=== PATIENT | male | born 1955 | race Caucasian/White ===

== ENCOUNTER 2018-06-18 10:44 | Day surgery (SDC) | payer OTHER ==
[~2018-06-18 10:44] MED LIST: Buffered Lidocaine 0.9% SYRIN* 5 ML/SYR SYRINGE INTRADERM ONE; Dexamethasone IV* 4 MG/ML 1 ML (4 MG) IV SLOW PU ONE; Famotidine IV* 10 MG/ML 2 ML (20 mg) IV ONE
[2018-06-18] MEDS ORDERED: Dexamethasone IV* 4 MG/ML 1 ML (4 MG) ONE (11:01)
[2018-06-18] MEDS ORDERED: ceFAZolin 2 GM PREMIX in ORs 2 GM/50 ML BAG IVPB ONE (11:01)
[2018-06-18] MEDS ORDERED: Famotidine IV* 10 MG/ML 2 ML (20 mg) ONE (11:02)
[2018-06-18] MEDS ORDERED: Bupivacaine 0.25% SDV* 30 ML ONE (11:54)
[2018-06-18] MEDS ORDERED: fentaNYL* 50 MCG/ML 2 ML VIAL (100 MCG VIAL) ONE ×2 (11:57→13:52)
[2018-06-18] MEDS ORDERED: Midazolam* 1 MG/ML 2 ML VIAL (2 MG) ONE (11:57)
[2018-06-18] MEDS ORDERED: Propofol* 10 MG/ML 20 ML BTL IV PUSH ONE (11:59)
[2018-06-18] MEDS ORDERED: EPHEDrine (Pressors)* 50 MG/ML VIAL ONE (12:22)
[2018-06-18] MEDS ORDERED: Naloxone* 0.4 MG/ML 1 ML VIAL IV PRN (12:31)
[2018-06-18] MEDS ORDERED: DiMENhydriNATE IV* 50 MG/ML VIAL IV PUSH PRN (12:31)
[2018-06-18] MEDS ORDERED: fentaNYL* 50 MCG/ML 2 ML VIAL (100 MCG VIAL) IV PRN (12:31)
[2018-06-18 15:06] VITALS: BP 121/70
--- NOTE | 2018-06-19 13:04 | OP ---
DATE OF OPERATION: 06/18/18 - [facility] DATE OF : 51 SURGEON: Yomi Lin MD [employer] LIBRARIAN: EDU [place]. An plumber's assistant was needed for the entirety of the procedure to aid in positioning of the arm and retraction. ANESTHESIOLOGIST: Dr. Benoit. ANESTHESIA: General. 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 OPERATIVE PROCEDURE: Right third metacarpophalangeal joint arthroplasty with PyroCarbon Integra implant. INDICATIONS: Adrile has been a patient of mine for quite some time. We have done injections. The pain has progressed to the point now that it is so severe that he is looking to have something done. We discussed the risk of failure of the implant, risk of loosening, risk of collateral ligament instability, progressive deformity, the risk of the need for revision of the implant versus need to fuse the joint. He understands all of this, he would like to proceed. He also understands risk of infection. ESTIMATED BLOOD LOSS: 2 mL. COMPLICATIONS: None. FINDINGS: See above and below. DESCRIPTION OF PROCEDURE: Adriel was seen in the preoperative holding area. The correct site, side, and procedure were identified. We came back to the operating room where the arm was prepped and draped in the usual fashion. The arm was extended with the Esmarch and the tourniquet was inflated to 250 mmHg. I made a curvilinear longitudinal incision over the dorsum of the third MCP joint. Dissection was carried down and full-thickness flaps were raised off the extensor tendon and paratenon. There was no subluxation of the extensor tendon and so, I split the tendon down the midline. The interval between the capsule and the tendon was developed. The capsule was then split longitudinally and soft tissue was reflected off the metacarpal head and neck and off the base of the proximal phalanx taking care to preserve the collateral ligament. I then placed a 0.062 K-wire into the metacarpal head. A starter awl was used to open up the cortex of the metacarpal head. There was no cartilage left and the bone was very eburnated. The metacarpal head cutting guide pin was introduced into the metacarpal shaft and the alignment was confirmed on the AP and lateral views. I then made my cut with the sagittal saw blade provided in the Integra instrument set. Care was taken to preserve the collateral ligament origin and the cut was made just distal to the collateral ligament origin. I then came to the proximal phalanx and I opened up the bone in the appropriate position with 0.062 K-wire. I then made a small cut off the base of the proximal phalanx in the appropriate orientation. The provided bur was used to open up a cortical window through the subchondral bone , so that I can broach up and size my implant off the proximal phalanx. Ultimately, we broached up to a 30. I then came to the metacarpal head, and I broached up to a size 30 taking care to confirm the alignment on mini C-arm fluoroscopy. I placed my trial implants. I thought it was just a little bit tight, so I took another mm or 2 off the metacarpal head. I re-broached and then I trialed and everything looked good at this point. We therefore irrigated things out very nicely. We changed our gloves and then I opened up gloves and then we opened up the definitive implant and first placed the proximal phalanx implant and then the metacarpal head implant. The metacarpal head implant was sitting just a mm proud and I could not get it to sink down, but ultimately the fit was very nice and so, I did not want to remove it and re- broached because I did not want to damage the metacarpal head , so I just left it in place as it was extremely stable. There was no motion or play in the implants, whatsoever. The fit was very nice, had a full easy range of motion. There was no friction and no catching. Overall, he is very pleased with the sizing of the implant. Certainly, the joint did not fill overstuffed to me. Everything was looking good at this point, so we irrigated out the wound copiously and then I closed the capsule with 4-0 Prolene suture. I then closed the splint and my extensor tendon with 4-0 Prolene suture. Skin was closed with 4-0 nylon suture. 0.25% Marcaine was infiltrated all around the area. The wound was dressed and he was placed in short-arm splint with the MCP joint in gentle flexion and the IP joints extended. Tourniquet was deflated. The hand and finger pinked up immediately. He was taken to the recovery room in stable condition. [id number]/[facility] #: [id number] CARROLL
== END 2018-06-18 15:45 | disposition home or self-care (01) ==
LOC: OREAST 10:44
PROVIDERS: ATTEND Orthopaedic Surgery Hand Surgery
DX: M19.041 Primary osteoarthritis, right hand (principal); M19.042 Primary osteoarthritis, left hand; I10 Essential (primary) hypertension; E78.5 Hyperlipidemia, unspecified
CPT/HCPCS: 76000; C1776; J0690; J1100; J2250; J2704; J3010

== ENCOUNTER 2018-08-13 06:02 | Day surgery (SDC) | payer OTHER ==
[~2018-08-13 06:02] MED LIST changes: -Dexamethasone IV* 4 MG/ML 1 ML (4 MG) IV SLOW PU ONE; +Dexamethasone TAB* 4 MG PO ONE; +DiMENhydriNATE IV* 50 MG/ML VIAL IV PUSH PRN; +Lactated Ringers 1000 ML Bag* 1,000 ML IV SCH; +Morphine VIAL* 4 MG/ML VIAL (1 ml vial) IV PRN; +Naloxone* 0.4 MG/ML 1 ML VIAL IV PRN; +Ondansetron TAB* 4 MG PO ONE; +PROCHLORPERAZINE INJ 5 MG/ML 2 ML VIAL IV PRN; +Scopolamine 1.5 mg* PATCH TRANSDERM PRN; +fentaNYL* 50 MCG/ML 2 ML VIAL (100 MCG VIAL) IV PRN; +oxyCODONE/Acetamin 5/325 MG* TAB PO PRN
[2018-08-13] MEDS ORDERED: Lidocaine 1% INJ* 10 MG/ML 30 ML SDV ONE (06:51)
[2018-08-13] MEDS ORDERED: Bupivacaine 0.5% W/EPI SDV* 30 ML VIAL ONE (06:51)
[2018-08-13] MEDS ORDERED: Ketorolac INJ* 30 MG/ML 1 ML VIAL ONE (06:53)
[2018-08-13] MEDS ORDERED: ceFAZolin 2 GM PREMIX in ORs 2 GM/50 ML BAG IVPB ONE (06:53)
[2018-08-13] MEDS ORDERED: Dexamethasone TAB* 4 MG ONE ×2 (06:53→07:06)
[2018-08-13] MEDS ORDERED: Ondansetron ODT TAB* 4 MG ONE (06:53)
[2018-08-13] MEDS ORDERED: Famotidine IV* 10 MG/ML 2 ML (20 mg) ONE (06:53)
[2018-08-13] MEDS ORDERED: fentaNYL* 50 MCG/ML 2 ML VIAL (100 MCG VIAL) ONE (07:15)
[2018-08-13] MEDS ORDERED: Midazolam* 1 MG/ML 5 ML VIAL (5 MG) ONE (07:15)
[2018-08-13] MEDS ORDERED: KETAMINE HCL* 50 MG/ML 10 ML VIAL ONE (07:15)
[2018-08-13] MEDS ORDERED: Propofol* 500 MG/50 ML BTL ONE (07:49)
[2018-08-13] MEDS ORDERED: Flumazenil* 0.1 MG/ML 5 ML MDV ONE (07:49)
[2018-08-13] MEDS ORDERED: Glycopyrrolate IV* 0.2 MG/ML 1 ML VIAL ONE (07:49)
--- NOTE | 2018-08-13 08:11 | OP ---
Operative Report - Blank - Operative Report Date of Operation: 08/13/18 Note: Brief Operative Note Preop Dx: Right Inguinal Hernia Postop Dx: same (indirect) Procedure: Open repair RIH w/ mesh Anesthesia: local MAC Surgeon: Adis Dispensing Optician: EDU Jones Fluids: 800 ml RL EBL: < 20 ml Specimen: none Drains: none Findings: dictated
[2018-08-13 10:04] VITALS: BP 153/97
--- NOTE | 2018-08-13 16:12 | OP ---
CC: Dr. Arron Arceo; Dr. Platt. OPERATIVE REPORT: DATE OF OPERATION: 08/13/18 DATE OF : 51 SURGEON: Dr. Arceo. RECOVERY ROOM NURSE: Dr. Jones. ANESTHESIOLOGIST: Dr. Lambert. ANESTHESIA: LMAC anesthesia. PRE-OP DIAGNOSIS: Right inguinal hernia. POST-OP DIAGNOSIS: Right inguinal hernia. OPERATIVE PROCEDURE: Open right inguinal hernia repair with mesh. DESCRIPTION OF PROCEDURE: The patient was supine on the operating room table. After adequate intrave nous sedation, compression stocking, Maximilian Hugger warmer, and intravenous antibiotics; the right groin is prepped with antiseptic drape in a sterile fashion. Local infiltrative anesthesia was administer ed. Approximately, a 2.5-inch incision was created and carried down to the external oblique which wa s opened in the direct of its fibers. Cord structures were encircled with a Carie drain and tented upward. There was an indirect hernia sac and some lipoma of the cord. This was all dissected free and reduced and a cone mesh plug was placed into the internal ring, sutured there with 2-0 Vicryl. A second piece of mesh was placed over the inguinal floor, sutured at the tubercle. Tails were split, brought around the cord structures, tacked down laterally. External oblique was closed over top usi ng 2-0 Vicryl, Scarp's with 3-0 Vicryl, skin with 4-0 Prolene followed by a sterile dressing. He bailee erated the procedure well, was awakened, and brought to Recovery in good condition. No complications , no drains, no pathologic specimens. Sponge and instrument counts correct. ESTIMATED BLOOD LOSS: 10 mL. [id number]/[facility] #: [id number]
[2018-08-16] MEDS ORDERED: Scopolamine PATCH Remove* 1 NOTE MISC PATCH OFF ONE (05:45)
== END 2018-08-13 10:07 | disposition home or self-care (01) ==
LOC: OR 06:02
PROVIDERS: ATTEND Surgery
DX: K40.90 Unilateral inguinal hernia, without obstruction or gangrene, not specified as recurrent (principal); E78.5 Hyperlipidemia, unspecified
CPT/HCPCS: A9270-GY; C1781; J0690; J1885; J2250; J2704; J3010; J8540